=== PATIENT | male | born 1965 | race African-American/Black ===

== ENCOUNTER 2017-01-12 07:13 | Inpatient (IN) ==
[2017-01-12] MEDS ORDERED: TORADOL IV ONE (07:36)
[2017-01-12 07:42] LABS: MANUAL DIFF NEEDED? NO
[2017-01-12 07:48] LABS: BASO% 0.1 % (0.0-0.8); EOS# 0.06 X1000 (0.0-0.7); EOS% 0.8 % (0.0-10.0); HEMATOCRIT 41.1 % (42.0-52.0); HEMOGLOBIN 13.9 g/dL (14.0-18.0); LYMPH# 1.71 X1000 (1.2-3.4); LYMPH% 22.6 % (20.5-51.1); MCH 28.9 PG (27-31); MCHC 33.8 g/dL (33-37); MCV 85.4 FL (81-99); MONO# 0.84 X1000 (0.11-0.59); MONO% 11.1 % (1.7-9.3); MPV 10.2 FL (7.4-10.4); NEUT% 65.4 % (42.2-75.2); PLT 359 X1000 (130-400); RBC 4.81 XMIL (4.7-6.1)
--- NOTE | 2017-01-12 08:01 | PROVIDER DOCUMENTATION ---
HPI-Abdominal Pain/GI Problem - General Chief Complaint: Abdominal Pain Stated Complaint: RT SIDE PAIN,VOMITING,STENT NEED TO BE REMOVED Time Seen by Provider: 01/12/17 07:33 Source: patient Unable to obtain history due to:: urgency Allergies/Adverse Reactions: Patient Allergies Allergy/AdvReac Type Severity Reaction Status Date / Time No Known Allergies Allergy Verified 01/12/17 07:53 Home Medications: Home Medication List Medication Instructions Recorded Confirmed Last Taken Type Hydrocodone/Acetaminophen 1 tab PO PRN PRN 01/08/17 01/12/17 01/12/17 History [Hydrocodon-Acetaminophn 10-325] LISINOpril [Prinivil] 5 mg PO DAILY 01/12/17 Unknown History Metformin [Glucophage] 500 mg PO WBREAKFAST 01/12/17 Unknown History - History of Present Illness-ABD Nature of Presenting Problems: 51 year old male with a history of chronic pancreatitis secondary to alcoholism , presents complaining of abdominal pain. Patient had two biliary stents placed 09/15/16, and did not follow up to have stents evaluated for his biliary strictures. He presents now complaining of abdominal pain, and he has marked scleral icterus. He does not appear in any acute distress, and denies any nausea, vomiting or diarrhea. Abdominal Pain Onset Location: reports: epigastric Pain Radiation: reports: epigastric Quality of Pain: reports: pressure Modifying Factors: improves with: nothing Associated Symptoms: reports: malaise, muscle aches Last BM: unsure Dark Stools Present?: reports: none noticed Rectal Bleeding: reports: none Rectal Pain: reports: none Emesis Description: reports: none Bruising or Bleeding Gums?: No Similar Symptoms Previously?: No Recently seen or treated by another doctor?: No Review of Systems - Adult - REVIEW OF SYSTEMS - ADULT Constitutional: reports: no symptoms reported Eyes: reports: no symptoms reported Ears, Nose, Mouth & Throat: reports: no symptoms reported Cardiovascular: reports: no symptoms reported Respiratory: reports: no symptoms reported Gastrointestinal: reports: abdominal pain Genitourinary: reports: no symptoms reported Musculoskeletal: reports: no symptoms reported Integumentary: reports: no symptoms reported Neurological: reports: no symptoms reported Psychiatric: reports: no symptoms reported Endocrine: reports: no symptoms reported Hematologic/Lymphatic: reports: no symptoms reported Allergic/Immunologic: reports: no symptoms reported All Other Systems: Reviewed and Negative Past History - Adult - PAST MEDICAL HISTORY-ADULT Review of Records: reports: Old Records Reviewed, Nursing Assessment Review, Medications Reviewed, Social history reviewed & non-contributory. Major Childhood Illnesses: reports: denies history Cardiovascular: reports: HTN, hyperlipidemia Respiratory: reports: denies history Gastrointestinal: reports: GERD, pancreatitis, other (hx of small bowel obstruction/cirrohsis) Obstetrical/Gynecological: reports: denies history Genitourinary: reports: denies history Musculoskeletal: reports: intervertebral disc disease Neurological: reports: denies history Psychiatric: reports: denies history Endocrine/Immune: reports: Diabetes Other Conditions: reports: acne - PRIOR SURGERIES/PROCEDURES Surgical/Procedure History: reports: other (pancreatic stent placed/left eye surgery) - PRIOR HOSPITALIZATIONS Prior Hospitalizations: reports: for other non-related - IMMUNIZATION STATUS Childhood Immunizations: See Nurse Assessment Flu Vaccine: See Nurse Assessment - FAMILY HISTORY Family History: reviewed, not pertinent Physical Exam-General - PHYSICAL EXAM-ADULT Initial Vital Signs Reviewed: Yes - CONSTITUTIONAL General Appearance: appears well - EYES Eyes: scleral icterus - HEAD, EARS, NOSE, MOUTH & THROAT HENMT: normocephalic/atraumatic - NECK Neck: non-tender, full range of motion - RESPIRATORY Respiratory: lungs clear - CARDIOVASCULAR Cardiovascular: normal peripheral pulses, regular rate, rhythm, no edema - GASTROINTESTINAL (ABDOMEN) Abdominal Exam: normal bowel sounds, non tender, soft - LYMPHATIC Lymphatic: no adenopathy - MUSCULOSKELETAL Back Exam: normal inspection, no CVA tenderness, no vertebral tenderness Extremity: normal range of motion, non-tender, normal gait - SKIN Integumentary: normal color, normal turgor, warm/dry, abrasion(s) - NEUROLOGIC Neurologic: yard pilot II-XII nml as tested, grossly normal, no motor/sensory deficits Progress - PLAN OF CARE/RESULTS Progress/Plan/Lab Results: Vital Signs - 8 hr 01/12/17 07:20 Temperature 97.9 F Pulse Rate 91 H Respiratory Rate 18 Blood Pressure 141/95 O2 Sat by Pulse Oximetry 100 Laboratory Results - last 24 hr 01/12/17 07:32 WBC 7.56 RBC 4.81 Hgb 13.9 L Hct 41.1 L MCV 85.4 MCH 28.9 MCHC 33.8 RDW Std Deviation 14.0 Plt Count 359 MPV 10.2 Immature Gran % (Auto) 0.0 Neut % (Auto) 65.4 Lymph % (Auto) 22.6 Mchenry % (Auto) 11.1 H Eos % (Auto) 0.8 Baso % (Auto) 0.1 Immature Gran # (Auto) 0.00 Neut # (Auto) 4.94 Lymph # (Auto) 1.71 Mchenry # (Auto) 0.84 H Eos # (Auto) 0.06 Baso # (Auto) 0.01 Orders Category Date Time Status Saline Loc DIRECTED Care 01/12/17 07:34 Active NPO Diet 01/12/17 07:34 Active ALCOHOL BLOOD Stat Lab 01/12/17 07:52 Ordered AMYLASE [CHEM] Stat Lab 01/12/17 07:32 Received CBC WITH ELECTRONIC DIFF [HEME] Stat Lab 01/12/17 07:32 Completed COMPREHENSIVE METABOLIC PANEL [CHEM] Stat Lab 01/12/17 07:32 Received LIPASE [CHEM] Stat Lab 01/12/17 07:32 Received URINALYSIS W/POSS RFLX CULT-1 [URINALYSIS] Stat Lab 01/12/17 07:34 Uncollected URINE DRUG SCREEN Stat Lab 01/12/17 07:42 Uncollected Ketorolac [Toradol] Med 01/12/17 07:36 Discontinued 30 mg IV NOW ONE Result Diagrams: 01/12/17 07:32 01/12/17 07:32 Departure - Departure Date of Disposition Decision: 01/12/17 Time of Disposition Decision: 11:14 DIAGNOSIS: Pancreatic mass, Jaundice Disposition: ADMITTED INPATIENT 09 Certified Medical Emergency: Emergent Condition: Stable Referrals and Follow-Ups: Jaime Lino MD [Primary Care Provider] - - Critical Care Note This patient required my direct & personal management of CC.: No Attestation - Physician/ JUSTIN Attestation The physician spent face to face time with patient:: Yes (case discussed with Dr. Starkey, who has accepted patient for admission) Advanced Practice Provider documentation review:: The physician spent face to face time with this patient and agrees with all MLP documentation, treatment, and medical decision making by the MLP. See provider notes for further information.
[2017-01-12 08:36] LABS: AGAP 19; ALBUMIN 4.1 g/dL (3.5-5.0); ALKALINE PHOSPHATASE 781 U/L (32-122); AMYLASE 59 U/L (20-200); BUN 12 mg/dL (8-22); CALCIUM 9.6 mg/dL (8.8-10.2); CHLORIDE 91 mmol/L (98-107); COSMO 279; GOT 886 U/L (10-34); GPT 602 U/L (10-44); LIPASE 27 U/L (13-60); POTASSIUM 3.9 mmol/L (3.5-5.1); SODIUM 135 mmol/L (136-145); TCO2 25 mmol/L (25-35); TOTAL PROTEIN 8.2 g/dL (6.3-8.3)
[2017-01-12 10:43] LABS: URINE CULTURE NEEDED? NO; URINE MICRO REVIEW NEEDED? NO; URINE SOURCE CLEAN CATCH
--- NOTE | 2017-01-12 10:47 | Diag Imaging Result Doc PS360 ---
EXAM: CT ABD/PELVIS W/ IV CONT ONLY HISTORY: abdominal pain TECHNIQUE: CT of the abdomen with intravenous contrast and dose reduction (clarity.) COMMENT: There is minimal atelectasis present in the lower lobes particularly the left lower lobe. The gallbladder is distended. There is a stent in the common bile duct. The stent was not present at the time the previous study of 04/15/2015. There is no evidence of abdominal aortic aneurysm. The mesenteric vessels are patent. There is a moderately large amount of stool and gas in the right colon. There is intrahepatic biliary dilatation. Otherwise, the liver is stable in appearance compared to the previous study. The spleen and adrenal glands are stable. The peripancreatic inflammatory changes which were present on the previous study have diminished, however there does appear to be a soft tissue mass in the head of the pancreas measuring 2.7 cm in AP dimension. There is a small splenule posterior and medial to the spleen. The kidneys are without evidence of hydronephrosis or mass. There is no evidence of bowel obstruction. The appendix is normal in appearance. CT of the pelvis with intravenous contrast: There is no evidence of free fluid. The urinary bladder is unremarkable. There is no evidence of significant adenopathy. The regional skeleton appears to be intact. IMPRESSION: Intra and extrahepatic biliary dilatation, status post biliary stent. Mild dilatation of the pancreatic duct to to the head of the pancreas. There is likely a mass in the head of the pancreas. Correlation with patient's history, which is not currently available, is recommended. Electronically signed by Kushal Nathan 01/12/2017 10:45 AM
[2017-01-12 10:50] LABS: BILIRUBIN URINE MODERATE (NEGATIVE); BLOOD URINE NEGATIVE (NEGATIVE); COLOR YELLOW; GLUCOSE URINE >1000 mg/dL (NEGATIVE); LEUKOCYTES URINE NEGATIVE (NEGATIVE); NITRITE URINE NEGATIVE (NEGATIVE); PH URINE 6.5; PROTEIN URINE 50 mg/dL (NEGATIVE); TURBIDITY URINE CLEAR (CLEAR); UROBILINOGEN URINE 2 mg/dL (NORMAL)
[2017-01-12 10:51] LABS: UR EPITHELIAL CELLS <10 /HPF (<10); URINE BACTERIA NEGATIVE /HPF; URINE RBC <10 /HPF (<10); URINE WBC <10 /HPF (<10)
[2017-01-12 11:00] LABS: SP GRAVITY URINE <= 1.005
[2017-01-12 11:39] LABS: UR AMPHETAMINES QUAL NONE DETECTED (NONE DETECT); UR BARBITUATES QUAL NONE DETECTED (NONE DETECT); UR BENZODIAZEPIN QUAL PRESUMPTIVE POSITIVE (NONE DETECT); UR CANNABINOIDS QUAL PRESUMPTIVE POSITIVE (NONE DETECT); UR COCAINE QUAL NONE DETECTED (NONE DETECT); UR METHADONE QUAL NONE DETECTED (NONE DETECT); UR OPIATES QUAL PRESUMPTIVE POSITIVE (NONE DETECT); UR OXYCODONE QUAL NONE DETECTED (NONE DETECT); UR PCP QUAL NONE DETECTED (NONE DETECT)
[2017-01-12] MEDS ORDERED: PROTONIX IV SCH (12:30)
[2017-01-12] MEDS ORDERED: SODIUM CHLORIDE 0.9% INJ SCH (12:30)
[2017-01-12] MEDS: MORPHINE IV PRN ×3 (13:08→21:05)
[2017-01-12] MEDS: NS 1,000 ML IV SCH ×2 (13:09→21:04)
--- NOTE | 2017-01-12 13:47 | HISTORY AND PHYSICAL ---
PRIMARY CARE PHYSICIAN: Jaime Lino MD CHIEF COMPLAINT: Abdominal pain. HISTORY OF PRESENT ILLNESS: Mr. Franco is 51-year-old male with a history of recurrent pancreatitis status post pancreatic stent placement. He also has a history of hypertension and diabetes mellitus. He has been seen by Dr. Cohen with Gastroenterology in the past and has had a pancreatic duct stent placed via ERCP, this was removed around 3 months ago in [place], [place] and new 1 was placed. He has been instructed to follow up with Dr. Cohen for removal of that stent but has not done so as of yet. He has a history of alcohol dependence and reports drinking 1 beer or shot per week. He came to the ER today for progressively worse abdominal pain that has been going on over the past 5 days. The pain began on Tuesday. It is mostly right-sided with no radiating qualities. It is constant and severe more of a pressure type pain. He does report nausea and vomiting with some possible coffee-ground emesis. He denies any hematochezia or melena. He denies fever or chills, cough or congestion. He does report that he has had about a 30 pound weight loss in the past year unintentionally. When he came to the ER today, his labs were consistent with obstructive jaundice. His bilirubin was around 6.3, with transaminases upwards of and 900. CT of the abdomen and pelvis showed intra and extra hepatic biliary dilatation, mild dilation of the pancreatic duct to the head of the pancreas and a likely mass in the head of the pancreas. We have spoken with Dr. Cohen and we are going to admit the patient for further treatment and evaluation. PAST MEDICAL HISTORY: 1. Recurrent pancreatitis status post multiple stents. 2. Diabetes mellitus. 3. Hypertension. 4. Anxiety. 5. History of alcohol dependence. SURGICAL HISTORY: He has had ERCPs with stent placements and removals. He has also had a circumcision. SOCIAL HISTORY: Patient smokes a pack a day. He reports drinking either 1 beer or 1 shot of liquor on Saturdays. He denies any drug use although his drug screen is positive for benzodiazepines, cannabinoids and opiates. 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 FAMILY HISTORY: Both of his parents are alive. His mother has coronary disease. He has an uncle with a history of esophageal cancer. REVIEW OF SYSTEMS: Fourteen-point review of systems was obtained and found to be negative with the exception of the HPI. ALLERGIES: No known drug allergies. HOME MEDICATIONS: Arverne as needed for pain. Lisinopril 10 mg daily. Glucophage 500 mg b.i.d. PHYSICAL EXAMINATION: VITAL SIGNS: Blood pressure is 175/113, heart rate 69, respiratory rate 16, O2 saturation 99% on room air. Temperature is 98.4 degrees. GENERAL: This is a well-developed, well-nourished, 51-year-old male, lying in a hospital bed in no acute distress. NEUROLOGIC: The patient is awake, alert, and oriented. Follows commands without focal deficits. HEENT: Head atraumatic, normocephalic. His pupils are equal, round, reactive to light. Sclerae are jaundiced. Oral mucosa is a bit dry but overall oropharynx is clear. Trachea is midline. Neck is soft and there is no JVD or carotid bruits. CHEST: Clear to auscultation bilaterally. CARDIOVASCULAR: Regular rate and rhythm. S1-S2 is noted. No murmurs, gallops , clicks, rubs. GASTROINTESTINAL: Fairly profound right upper quadrant. Tenderness to palpation. The belly is soft and nonrigid. Bowel sounds are hypoactive. EXTREMITIES: Without edema, clubbing or cyanosis. Pulses are palpable bilaterally. DIAGNOSTIC DATA: Abdomen pelvis CT, please see HPI. WBC 7.56. Hemoglobin 13.9 , hematocrit 41.1. Platelet count is 359,000. Sodium 135, potassium 3.9, chloride 91, CO2 25, anion gap 19, BUN 12, creatinine 0.7, glucose 261, bilirubin 6.3. AST 886, ALT 602. Alkaline phosphatase 781. CEA 6.3. UA shows greater than 1000 glucose. Specific gravity is less than 1.005. There is no indication of UTI. He does have moderate bilirubin in the urine. Toxicology is positive for opiates, benzodiazepine, and cannabinoids. Acetaminophen level was negative. Alcohol level was 0. ASSESSMENT AND PLAN: 1. Obstructive jaundice: Presumably secondary to mass or possibly biliary obstruction as well. We have consulted Dr. Cohen and we will keep the patient NPO. We will also consult general surgery as the patient does have an intra-abdominal mass. We will order a CEA, CA-19-9, thyroid function, B12 and folate. We will trend his LFTs daily and add IV fluid hydration as well as pain control. 2. Diabetes mellitus: We will check hemoglobin A1c. Add patterned sugars and sliding scale insulin. Hold his metformin. 3. Hypertension: The patient's blood pressure is high but were going to hold his lisinopril and we will add p.r.n. IV medications for now. Patient will need tighter control of his blood pressure. 4. Question polysubstance dependence: Patient has a history of alcohol dependence. He also is positive for multiple substances. We will monitor for signs of withdrawal closely, add IV Ativan if needed. Continue daily cessation education. 5. Nicotine dependence: Patient has been highly advised to quit smoking. We will write a nicotine patch and continue daily cessation education. 6. Deep venous thrombosis prophylaxis with SCDs and TEDs. Further recommendations to follow. Dictated by DEBBIE Asher for Roger Kory Kilpatrick MD cc: DEBBIE Asher MD Addendum: I personally evaluated and examined the patient in conjunction to the [facility] and agreed with his assessments and plans. Exhibits abd pain. MTDD
[2017-01-12] MEDS: NICODERM PATCH TD SCH (14:45)
--- NOTE | 2017-01-12 15:05 | CONSULTATION ---
DATE OF CONSULTATION: 01/12/2017 REASON FOR REFERRAL: Obstructive jaundice. HISTORY OF PRESENT ILLNESS: This is a 51-year-old, male, who we have seen in the past. He was last seen in September 2015. At that time he had a repeat ERCP with stent replacement. He was referred to [facility] for chronic pancreatitis. Patient states he did go to [facility] but nothing significant was done. We did not receive records from [facility]. He has not followed up in our office since his ERCP procedure in 2015. Patient states he has had issues off and on with pancreatitis last reported about 3-4 months ago when he was working in [place]. He states he had a repeat ERCP at that time with stent replacement. He reports onset of symptoms this time on Tuesday. He reported abdominal pain to the right quadrant, nausea, and vomiting, had noticed dark urine. He has reported occasional alcohol use. On evaluation a CT scan of the abdomen and pelvis showed intra and extrahepatic biliary dilatation with biliary stent in place, mild dilation of the pancreatic duct at the head of the pancreas. Questionable mass in the head of the pancreas. LABORATORY: CEA is elevated 6.3, CA-19-9 is pending. His amylase and lipase are normal. Total bilirubin 6.30. AST 886, ALT 602, alkaline phosphatase 781. PAST MEDICAL HISTORY: Recurrent pancreatitis, history of common bile duct stone /stricture with multiple ERCP procedures and stent placement, diabetes, hypertension, GERD. PAST SURGICAL HISTORY: ERCP x3, left eye surgery and neck surgery. ALLERGIES: No known drug allergies. HOME MEDICATIONS: Metformin 500 mg twice daily. Lisinopril 10 mg daily. Hydrocodone/acetaminophen 10/325 as needed. SOCIAL HISTORY: Positive for tobacco abuse 1 pack cigarettes daily. Reports occasional alcohol use. Last reported alcohol use several weeks ago. REVIEW OF SYSTEMS: Per HPI. PHYSICAL EXAMINATION: Vital Signs: Temperature 98.4 degrees, pulse 69, respirations 16, blood pressure 175/113. Generally: Patient is awake and alert. He complains of abdominal pain. Respiratory: Lung sounds essentially clear. Cardiovascular: Regular rate and rhythm. Abdomen: Tender, positive bowel sounds. HEENT: Scleral jaundice noted. DIAGNOSTIC RESULTS: Laboratory, hematology: White count 7.56, hemoglobin 13.9 , hematocrit 41.1, MCV 85.4, platelet 359,000. Chemistry: Sodium 135, potassium 3.9, chloride 91 , CO2 25, BUN 12, creatinine 0.7, glucose 261, total bilirubin 6.30. AST 886, ALT 602, alkaline phosphatase 781, amylase 59, lipase 27. CEA 6.3. CT scan of abdomen and pelvis shows intra and extrahepatic biliary dilatation with a stent in place. Mild dilation of the pancreatic duct at the head of the pancreas, questionable mass at the head of the pancreas. ASSESSMENT AND PLAN: 1. Obstructive jaundice. 2. Elevated liver function tests. 3. History of recurrent pancreatitis. 4. Diabetes. 5. Hypertension. 6. History of alcohol use. PLAN: Continue supportive care, p.r.n. medications for pain as needed. We will plan to proceed with an ERCP, possible stent replacement. Further plans will be made according to findings. I have discussed the procedure along with benefits and risks with the patient. He voiced understanding and wishes to proceed. I have discussed this case with Dr. Cohen. Further plans will be made by him. Thank you for this consult. Dictated by DEBBIE Agudelo for Jermain Cohen MD cc: DEBBIE Ramesh MD [facility]
--- NOTE | 2017-01-12 15:13 | CONSULTATION ---
DATE OF CONSULTATION: 01/12/2017 REQUESTING PHYSICIAN: The hospitalist service. Consult concerning possible pancreatic mass. HISTORY OF PRESENT ILLNESS: A 51-year-old male with a history of chronic pancreatitis status post ERCP and pancreatic stent placement now presenting with abdominal pain. He was seen in followup by Dr. Cohen in the past with what appeared to be a benign pancreatic stricture which thought to be secondary to chronic pancreatitis. He does have chronic pancreatitis secondary to presumed alcohol intake. He was admitted by the hospitalist service after having abdominal pain for the last 5 days. This is constant and more severe, located in the right upper quadrant epigastric. He was found to be jaundiced with a bilirubin of 6. When he was in the emergency department he had a CT scan that showed a dilated pancreatic and biliary tree with possibility of a pancreatic mass. He still has a stent in place. I have been asked to weigh an opinion on patient's possible pancreatic mass. PAST MEDICAL HISTORY INCLUDES: 1. Recurrent pancreatitis status post multiple stents. 2. Diabetes mellitus. 3. Hypertension. 4. Anxiety. 5. History of alcohol dependence. PAST SURGICAL HISTORY: Includes previous ERCP and stent placement. SOCIAL HISTORY: Smokes a pack a day. He did have a positive urine drug screen for benzos, cannabinoid and opiates. He does have a history of alcohol abuse. FAMILY HISTORY: Positive for coronary artery disease and esophageal cancer. ALLERGIES: None. HOME MEDICATIONS: Warne for pain, lisinopril, Glucophage. REVIEW OF SYSTEMS: A full 10 point review of systems obtained, negative except those as specified in HPI. PHYSICAL EXAMINATION: Vital Signs: Patient is currently afebrile. His vital signs are stable. General: No acute distress. Alert, interactive, male looks stated age. HEENT: Normocephalic, atraumatic. Pupils equal, round, react to light. Positive scleral icterus noted. Mucous membranes moist. Oropharynx benign. Neck: Supple. Trachea midline. Cardiovascular: Regular rate and rhythm. Lungs: Grossly clear. Abdomen: Soft. Some tenderness to palpation in the epigastric and right upper quadrant. No peritoneal signs. Extremities: Moves all extremities. Skin: Positive for jaundice. Vascular: All extremities perfused. Neurologic: Grossly intact. LABORATORY: Reviewed. White blood cell count is within normal limits. Bilirubin is 6.3. AST, ALT and alkaline phosphatase are all elevated. CEA is 6.3. IMAGING: CT scan reviewed and noted above. ASSESSMENT/PLAN: A 51-year-old male with possible pancreatic mass. 1. Multiple medical comorbidities currently being managed by the hospitalist service. 2. Possible pancreatic mass. At this time patient has been consented for potential ERCP by Dr. Cohen in the morning for stent exchange. We will follow up with the results of that. I have also ordered an MRI to evaluate this mass fully. There appears to be some potential local affect on the portal vein and superior mesenteric vein which may make this an unresectable cancer. The patient also has some adenopathy in the area which may also preclude resection. We will follow up with results and make further plans after all results are done. cc: Dov Dempsey MD
--- NOTE | 2017-01-12 15:48 | Diag Imaging Result Doc PS360 ---
EXAM: MRI ABDOMEN W/WO CONTRAST HISTORY: Possible Pancreatic Mass TECHNIQUE: MRI of the abdomen with and without gadolinium. Coronal SSFSE, coronal T1 FSPGR, axial SS FSE, T1 in and out of phase axial, T1 pre and post gadolinium axial, T2 axial fiesta, T1 coronal FSPGR postgadolinium, and axial lava postgadolinium. Thick slab MRCP. COMMENT: There is intra and extrahepatic biliary dilatation to a point tip the level of the pancreatic head as described on the previous CT scan. The pancreatic duct is also narrowed in this region. There is narrowing of the superior mesenteric vein in the same area.There is an apparent mass in the pancreatic head measuring 2.6 x 2.1 x 1.7 cm. The borders are very indistinct. IMPRESSION: Poorly defined mass in the pancreatic head. While this may be inflammatory, the possibility of neoplasm cannot be excluded. Electronically signed by Kushal Nathan 01/12/2017 3:46 PM
[2017-01-12] MEDS: HUMALOG SUBQ SCH ×2 (16:30→21:05)
[2017-01-13] MEDS: MORPHINE IV PRN ×3 (01:09→09:07)
[2017-01-13 05:31] LABS: HEMATOCRIT 38.1 % (42.0-52.0); HEMOGLOBIN 13.2 g/dL (14.0-18.0); MCHC 34.6 g/dL (33-37); MCV 86.6 FL (81-99); MPV 10.2 FL (7.4-10.4); RBC 4.4 XMIL (4.7-6.1)
[2017-01-13 05:36] LABS: INR 1.01; PROTIME 10.6 Seconds (9.2-11.7)
[2017-01-13 06:06] LABS: AGAP 18; ALBUMIN 3.6 g/dL (3.5-5.0); ALKALINE PHOSPHATASE 728 U/L (32-122); BUN 10 mg/dL (8-22); CALCIUM 8.8 mg/dL (8.8-10.2); CHLORIDE 96 mmol/L (98-107); COSMO 279; GOT 292 U/L (10-34); GPT 498 U/L (10-44); HDL 12 mg/dL (35-55); LDL 166 mg/dL; SODIUM 137 mmol/L (136-145); TCO2 23 mmol/L (25-35); TOTAL BILIRUBIN 3.48 mg/dL (0.20-1.00); TOTAL PROTEIN 7.8 g/dL (6.3-8.3); TRIGLYCERIDES 193 mg/dL (39-160); VLDL 39 mg/dL
--- NOTE | 2017-01-13 06:31 | PROGRESS NOTE ---
DATE: 01/13/2017 SUBJECTIVE: Patient is on the schedule for an ERCP with stent exchange today. He did have his MRI done yesterday. OBJECTIVE: Vital Signs: Patient is currently afebrile. His vital signs are stable. General: No acute distress resting comfortably on his right side. HEENT: Normocephalic, atraumatic. Pupils equal, round and reactive to light. Positive scleral icterus noted. Mucous membranes moist. Oropharynx benign. Neck: Supple. Trachea midline. Cardiovascular: Regular rate and rhythm. Lungs: Grossly clear. Abdomen: Soft. Some mild tenderness in the right upper quadrant epigastric. No significant change from yesterday. No peritoneal signs. Extremities: Moves all extremities. Neurologic: Grossly intact. Skin: Positive for jaundice. Vascular: All extremities perfused. LABORATORY: CBC reviewed this morning and grossly within normal limits. A CMP is currently pending. MRI reviewed and radiology report reviewed. The patient does have a poorly defined mass in the pancreatic head which it's borders are ill-defined. ASSESSMENT AND PLAN: A 51-year-old male with a possible pancreatic mass with biliary obstruction. 1. Biliary obstruction. At this time, patient has gone for ERCP and stent exchange. We will follow up with Dr. Cohen for results. 2. Pancreatic mass. At this time, still defined on both CT scan and MRI. Patient likely would benefit from endoscopic ultrasound once this stent is exchanged. We will need to arrange this. At the time, he could potentially get a biopsy of his pancreatic mass to evaluate if it is inflammatory versus neoplastic. I would make further recommendations after this was done. 3. Multiple medical comorbidities currently being managed by the hospitalist service. cc: Dov Dempsey MD
[2017-01-13] MEDS: NS 1,000 ML IV SCH ×2 (06:44→17:37)
[2017-01-13] MEDS: HUMALOG SUBQ SCH ×4 (06:45→21:11)
[2017-01-13] MEDS: NICODERM PATCH TD SCH (09:15)
[2017-01-13 11:09] LABS: HEPATITIS PROFILE ACUTE SEE COMMENTS
[2017-01-13] MEDS ORDERED: B & O 16A SUPP ONE (12:25)
[2017-01-13] MEDS ORDERED: CIPRO 400 MG/D5W 400 MG/200 ML IVPB IV ONE (13:00)
--- NOTE | 2017-01-13 13:11 | Diag Imaging Result Doc PS360 ---
EXAM: ERCP -BILIARY AND PANCREATIC HISTORY: obstructive jaundice TECHNIQUE: Two views COMMENT: There is a biliary stent which should is located between the common bile duct and the duodenum. There appears to be some filling defect in the mid to common bile duct adjacent to the stent. There is narrowing of the distal common bile duct. IMPRESSION: Replacement of biliary stent. The possibility of some retained debris in the common bile duct in addition to the stenosis of the distal common bile duct is suggested. Electronically signed by Kushal Nathan 01/13/2017 1:08 PM
--- NOTE | 2017-01-13 13:17 | PROGRESS NOTE ---
DATE: 01/13/2017 SUBJECTIVE: According to the patient, he has been having a lot of pain in his abdomen. No fever. No chills overnight. OBJECTIVE: Vital signs: Blood pressure 152/85, pulse of 54, respirations 18, temperature of 98 degrees, and sats of 99% on room air. General Appearance: Well-developed, well -nourished black male in moderate distress due to pain. HEENT: Anicteric sclerae. Clear conjunctivae. Neck: Supple. No JVD. No bruits. Cardiovascular: S1, S2. Normal rate and rhythm. No murmur, rubs or gallops. Pulmonary: Clear to auscultation bilaterally. GI: Soft, nontender, and nondistended. Normoactive bowel sounds. Musculoskeletal: No clubbing, cyanosis, or edema. LABORATORY: Sodium 137, potassium 4.0, chloride 96, bicarb 23, BUN 10, creatinine 0.6, glucose of 216. AST is a 292, ALT of 498 and alkaline phosphatase is 728 and his total bilirubin is 3.48. ASSESSMENT AND PLAN: This is a 51-year-old black male admitted to the hospital for abdominal pain with MRI and showed the possible mass at the head of the pancreas. Pancreatic mass concerning for malignancy. GI was consulted and Dr. Houser is planning to do an ERCP possibly later today. We will increase the pain control. He seemed to do better with Dilaudid and we will add [place] for baseline pain control. We will continue IV fluids and supportive care. For his diabetes, we will continue sliding scale insulin. For his hypertension, we will resume his lisinopril. [facility]
[2017-01-13] MEDS ORDERED: DIPRIVAN 1% ONE (14:26)
[2017-01-13] MEDS: DILAUDID IV PRN ×3 (14:29→21:11)
--- NOTE | 2017-01-13 16:04 | OPERATIVE NOTE ---
PROCEDURE DATE: 01/13/2017 PROCEDURE: Endoscopic retrograde cholangiopancreatography and stent placement. MEDICATION USED: MAC as per Anesthesia. SCOPE USED: Olympus duodenoscope. HISTORY: This is a 51-year-old, gentleman who has history of recurrent pancreatitis and common bile duct stricture. He had a stent placed in [place] and has presented to the hospital with complaints of abdominal pain, nausea, vomiting and his liver panel shows evidence of jaundice, which appears to be obstructive in nature. ERCP was done for stent removal and re-examine the common bile duct. DESCRIPTION OF OPERATION: Informed consent obtained from the patient. The procedure, risks, benefits, alternatives were explained in layman's terms. Risks of, but not limited to bleeding, perforation, aspiration, pneumonia, and pancreatitis was explained. He understood. All his pertinent questions were answered. Patient was brought to the endoscopy unit and was premedicated as per Anesthesia. After adequate sedation, while he was lying in left lateral position, the duodenoscope was introduced into the posterior pharynx and advanced manually into the esophagus. Through the esophagus, it was advanced into the stomach and then through a normal pylorus into the duodenal bulb and then to the 2nd part duodenum. In the 2nd portion of duodenum, I saw a plastic stent coming out of the major papilla. Using the duodenal stent, the distal end of the stent was grasped and it was removed without any difficulty. The scope was then reintroduced back into the duodenum and the major papilla was identified. A cannula was introduced into the distal common bile duct preferentially and contrast injected. Cholangiogram obtained which revealed a tight, smooth stricture in the distal common bile duct which was about 10-15 mm in length. Proximally, the common bile duct appeared to be slightly dilated, but I did not see any filling defects. The intrahepatic ducts and the common bile duct appear to be of normal size. At this point, I went ahead and proceeded with placement of a plastic stent which was 8,5 [place] and 5 cm long. After the stent was placed, the contrast was draining normally. The scope was withdrawn. Patient tolerated the procedure with no complication noted. Patient was then transferred to the recovery area in a stable condition. IMPRESSION: Stricture distal common bile duct, most likely benign nature from extrinsic compression from the pancreatic pathology. PLAN: I would continue to recheck labs while he is in the hospital and continue symptomatic treatment. Once stabilized, patient will be discharged. He will need EUS and FNA to look at the pancreatic mass for possible neoplastic lesion. I have explained the findings and plan to the patient's family. They understood and all their pertinent questions were answered. cc: Jermain Cohen MD
[2017-01-13] MEDS ORDERED: XYLOCAINE-MPF 2% ONE (16:38)
[2017-01-13] MEDS ORDERED: ROBINUL ONE (16:38)
[2017-01-13] MEDS ORDERED: NS 1,000 ML ONE (16:38)
[2017-01-14] MEDS: DILAUDID IV PRN ×3 (01:08→10:49)
[2017-01-14] MEDS: NS 1,000 ML IV SCH ×2 (01:10→05:59)
[2017-01-14] MEDS: NORCO-10 PO PRN ×2 (03:13→09:32)
[2017-01-14] MEDS: HUMALOG SUBQ SCH ×2 (06:08→11:48)
--- NOTE | 2017-01-14 06:12 | PROGRESS NOTE ---
DATE: 01/14/2017 SUBJECTIVE: The patient tolerated his ERCP and stent exchange well. No major issues. He feels better this morning. He does want something regular to eat. OBJECTIVE: Vital Signs: Patient is currently afebrile. His vital signs are stable. General: No acute distress. Resting comfortably on his right side. HEENT: Normocephalic, atraumatic. Pupils equal, round, and react to light. Mucous membranes moist. Oropharynx benign. Neck: Supple. Trachea midline. Cardiovascular: Regular rate and rhythm. Lungs: Grossly clear. Abdomen: Soft. Only minimal tenderness in the right upper quadrant epigastric improved from previous days. No peritoneal signs. Extremities: Moves all extremities. Neurologic: Grossly intact. Skin: Not as obvious of jaundice Vascular: All extremities perfused. LABORATORY: Pending for this morning. ASSESSMENT AND PLAN: A 51-year-old male with possible pancreatic mass with biliary obstruction. 1. Biliary obstruction. At this time, I suspect it has been relieved since he has had a stent exchanged. We will followup with his labs. 2. Pancreatic mass. At this time, suspect he needs endoscopic ultrasound. His CT scan and MRI do show the potential for a mass but there is a possibility that it might be inflammatory and endoscopic ultrasound may allow the patient to have a biopsy of the area. I discussed this all with Dr. Cohen during the patient's endoscopic retrograde cholangiopancreatography. He does have a CA-19-9 that is 268, which is elevated, which may be related to both pancreatic cancer, but again would like to have FNA and confirmation of this. The endoscopic ultrasound might also give the ability to define the borders better since they are indistinct on both the CT scan and MRI. 3. Multiple medical comorbidities. Currently being managed by the Hospitalist Service. I appreciate the consult. We will continue to follow the patient while he is here. I think he potentially could be discharged soon and most of his other endoscopic ultrasound and biopsy could be done as an outpatient. cc: Dov Dempsey MD
[2017-01-14 06:57] LABS: HEMATOCRIT 35.9 % (42.0-52.0); HEMOGLOBIN 12.1 g/dL (14.0-18.0); MCH 29.8 PG (27-31); MCHC 33.7 g/dL (33-37); MCV 88.4 FL (81-99); MPV 10.5 FL (7.4-10.4); RBC 4.06 XMIL (4.7-6.1)
[2017-01-14] MEDS ORDERED: PRILOSEC PO SCH (07:00)
[2017-01-14 07:19] LABS: AGAP 13; ALBUMIN 3.4 g/dL (3.5-5.0); ALKALINE PHOSPHATASE 583 U/L (32-122); BUN 10 mg/dL (8-22); CALCIUM 8.3 mg/dL (8.8-10.2); CHLORIDE 95 mmol/L (98-107); COSMO 269; GOT 77 U/L (10-34); GPT 288 U/L (10-44); POTASSIUM 4.2 mmol/L (3.5-5.1); SODIUM 131 mmol/L (136-145); TCO2 23 mmol/L (25-35); TOTAL BILIRUBIN 1.48 mg/dL (0.20-1.00); TOTAL PROTEIN 6.1 g/dL (6.3-8.3)
[2017-01-14] MEDS ORDERED: PRINIVIL PO SCH (09:00)
[2017-01-14] MEDS: NICODERM PATCH TD SCH (09:56)
--- NOTE | 2017-01-14 11:19 | PROGRESS NOTE ---
DATE: 01/14/2017 SUBJECTIVE: Patient states he is feeling better. He wants to go home. ERCP with stent exchange was done by Dr. Cohen on 01/13/2017. Impression showed stricture at the distal common bile duct, possible from extrinsic compression from pancreatic pathology. Recommended to have EUS with biopsy to take a better look at pancreatic mass for possible neoplastic lesion. OBJECTIVE: Vital Signs: Temperature 97.9 degrees, pulse 58, respirations 18, blood pressure 115/53. LABORATORY: Hematology: White count 5.89, hemoglobin 12.1, hematocrit 35.9, MCV 88.4, platelets 315. Chemistry: Sodium 131, potassium 4.2, chloride 95, CO2 of 23, BUN 10, creatinine 0.6, glucose 236, total bilirubin 1.48, AST 77, ALT 288, alkaline phosphatase 583. ASSESSMENT AND PLAN: 1. Biliary obstruction. Endoscopic retrograde cholangiopancreatography and stent exchange were done yesterday. 2. Pancreatic mass. Recommend endoscopic ultrasound with biopsy for further evaluation. The patient has discharge orders to go home. I have instructed him to follow back in our office in 2-3 weeks. In the meantime, I will discuss with Dr. Cohen about referral for endoscopic ultrasound and proceed with that referral per his advice. Further plans will be made as an outpatient basis. Dictated by DEBBIE Agudelo for Jermain Cohen MD cc: DEBBIE Ramesh MD
[2017-01-14 11:25] VITALS: BP 156/94
--- NOTE | 2017-01-14 12:09 | PROGRESS NOTE ---
DATE: 01/14/2017 SUBJECTIVE: The patient is feeling better. He wants to go home. Denies having any fever or chills. Abdominal pain is much improved, still present, but less intensity. OBJECTIVE: Vital signs: Blood pressure 156/94, pulse of 53, respirations 18, temperature 97.9 degrees, satting 97% on room air. General appearance: Well-developed, well-nourished, black male in no acute distress. HEENT: Anicteric sclerae. Clear conjunctivae. Neck: Supple. No JVD. No bruit. Cardiovascular: S1, S2. Normal rate and rhythm. No murmur, rubs, or gallops. Pulmonary: Clear to auscultation bilaterally. GI: Mild tenderness in epigastric region. Normoactive bowel sounds. Musculoskeletal: No clubbing, cyanosis or edema. LABORATORY: His white count today is 5.89, hemoglobin 12.1, hematocrit of 35.9, platelets 315. Chemistry: Sodium 131, potassium 4.2, chloride 95, bicarbonate 23, BUN 10, creatinine 0.6, glucose of 236. LFTs have significantly improved. ASSESSMENT AND PLAN: This is a 51-year-old white male admitted to the hospice with an ill-defined pancreatic mass concerning for pancreatic cancer: 1. Pancreatic mass status post stent placement. Dr. Cohen replaced the stent, and the patient is feeling much better from a pain standpoint, and so his liver function test has also improved. We will follow him up as an outpatient for referral to have endoscopy and fine needle biopsy. Discuss with Dr. Dempsey. He will be seen back in the office in about a week. He knows someone in [place] that can do a fine needle biopsy. We also discussed with Dr. Sakina Horn and with Dr. Cohen. He will also see him in the office and refer him to [facility] for endoscopic ultrasound. Will plan to discharge the patient home today.
--- NOTE | 2017-01-14 16:58 | DISCHARGE SUMMARY ---
ADMISSION DATE: 01/12/2017 DISCHARGE DATE: 01/14/2017 CONSULTATIONS: 1. Dr. Cohen with Gastroenterology. 2. Dr. Dov Dempsey with General Surgery. PERTINENT PROCEDURES: 1. Stricture to the distal common bile duct most likely benign nature from eccentric compression from the pancreatic pathology. 2. ERCP x-ray showed replacement of a biliary stent, possibility of some retained debris in the common bile duct in addition to stenosis in the distal common bile duct. 3. Abdominal MRI showed poorly defined mass in the pancreatic head. Could be inflammatory; the possibility of neoplasm could not be excluded. 4. Abdomen and pelvic CT showed intra and extrahepatic biliary dilatation. 5. Status post biliary stent. Mild dilatation of the pancreatic duct in the head of the pancreas. There is likely a mass in the head of the pancreatitis. DISCHARGE DIAGNOSES: 1. Biliary obstruction, status post stent exchange. 2. Pancreatic mass. CT scan and MRI showed potential for mass but there is a possibility it might be inflammatory. This was discussed with Dr. Cohen during the patient 's ERCP. He does have a CA-19-9 that is 268 which is elevated, which may be both related to both pancreatic cancer but again monitor the FNA to confirm. I recommend endoscopic ultrasound with biopsy for further evaluation. The patient will follow up with Dr. Cohen in 2-3 weeks and discuss about referral for the endoscopic ultrasound and proceed with that referral per Dr. Cohen's advice. 3. Diabetes. Continue with home Glucophage. 4. Hypertension, continue with Prinivil. 5. Pain control. Continue with [place]. HOSPITAL COURSE: Mr. Franco is a 51-year-old male with a history of recurrent pancreatitis status post pancreatic stent placement, history of hypertension and diabetes seen by Dr. Cohen with GI in the past. He has a pancreatic duct stent placed at ERCP that was removed around 3 months ago in [place], [place] and a new one was placed. He was instructed to follow up with Dr. Cohen for removal of that stent, but he has not done so as of yet. He has a history of alcohol dependence reported drinking 1 beer or shot per week. He came to the ED for progressively worsening abdominal pain that was going on for 5 days or so. It is mostly right- sided with no radiating quality that was constant and severe, more of a pressure type pain. He did report nausea and vomiting with some possible coffee-grounds emesis and a 30 pounds weight loss unintentionally over the past year. Labs in the ED were consistent with obstructive jaundice. His bilirubin was 6.3, transaminitis up towards 900. CT of the abdomen and pelvis showed intra and extrahepatic biliary dilatation. Mild dilatation of the pancreatic duct of the head with the pancreas and likely mass in the head of the pancreas. The case was discussed with Dr. Cohen. He was admitted for further evaluation and treatment. He underwent a stent exchange with Dr. Cohen. He did have an elevated CA-19-9. He was started on IV fluid hydration. He did have elevated LFTs. Dr. Dempsey also assessed the patient. They did recommend an endoscopic ultrasound to give the ability to define the borders better since they are indistinct on both the CT and the MRI scan for a mass in the pancreas. The patient has been instructed to follow up with Dr. Cohen in 2-3 weeks. I will be discussing with Dr. Cohen about referral for endoscopic ultrasound and proceed with that referral per his advice. VITAL SIGNS AT TIME OF HIS DISCHARGE: Temperature is 97.9 degrees, heart rate 53, respirations 19, blood pressure 156/94, O2 is 97% on room air. DISCHARGE DIET: Regular. DISCHARGE MEDICATIONS: 1. [place] 10/325, 1 each p.o. q.6 h p.r.n. 2. Prinivil 10 mg p.o. daily. 3. Glucophage 500 mg p.o. b.i.d. DISCHARGE DISPOSITION: The patient is being discharged home. He will follow up with Dr. Cohen in 2-3 weeks as well as his primary care physician, Dr. Jaime Lino. The patient can return to the ED for any worsening of symptoms. DISCHARGE TIME: 30 minutes. Dictated by DEBBIE Carter for Roger Kilpatrick MD cc: Jaime Lino MD I personally evaluated and examined the patient in conjunction to the [employer] and agreed with her plans and disposition. K[facility]STIAN
== END 2017-01-14 12:38 | disposition home or self-care (01) ==
LOC: ED 07:13 → 4N 07:14
PROVIDERS: ATTEND Internal Medicine
PROC: EN.ERCP (2017-01-13 12:30)